=== PATIENT | female | born 1965 | race Caucasian/White ===

== ENCOUNTER 2016-11-05 12:32 | Emergency (ER) | payer OTHER ==
[2016-11-05 12:38] VITALS: BP 97/66; PULSE 78; TEMP 98.2; BMI 21.6
[2016-11-05] MEDS ORDERED: ASPIRIN 81 MG CHEWABLE TABLETS PO ONE (13:58)
[2016-11-05] MEDS ORDERED: ASPIRIN 81 MG CHEWABLE TABLETS ONE (14:10)
[2016-11-05 14:21] LABS: BASOPHIL 0.9 % (0-2.0); EOSINOPHIL 1.8 % (0-4.5); MCH 30.1 pg (25.7-33.7); MCHC 34.4 g/dl (32.0-36.0); MEAN CELL VOLUME 87.6 fl (80-96); MEAN PLT VOLUME 7.9 fl (7.5-11.1); NEUTROPHILS 60.4 % (42.8-82.8); PLATELET COUNT 309 K/MM3 (134-434); RDW 12.4 % (11.6-15.6); WHITE BLOOD COUNT 5.7 K/mm3 (4.0-10.8)
--- NOTE | 2016-11-05 14:41 | PDOC ---
History of Present Illness <Julia Agosto - Last Filed: 11/05/16 17:25> - General History Source: Patient - History of Present Illness Initial Comments: 11/05/16 14:38 51 yo F with no pmhx here with c/o chest pain. started one week ago. intermittent, sharp, no radiation. no sob. not plueritic. no f/c no cough . no leg swellig. no h/o of prior similar pain. no family h/o cad. does not take any medications. did report recent travel to [place], 10 hr car ride. no h/o pe or dvt. <Siena Garcia - Last Filed: 11/05/16 18:38> - General Chief Complaint: Pain, Acute Stated Complaint: R CHEST PAIN Time Seen by Provider: 11/05/16 13:27 Past History <Julia Agosto - Last Filed: 11/05/16 17:25> - Past Medical History Thyroid Disease: No Other medical history: DENIES - Suicide/Smoking/Psychosocial Hx Smoking History: Never smoked Hx Alcohol Use: Yes Drug/Substance Use Hx: No Substance Use Type: Alcohol <Siena Garcia - Last Filed: 11/05/16 18:38> - Past Medical History Allergies/Adverse Reactions: Allergies Allergy/AdvReac Type Severity Reaction Status Date / Time No Known Allergies Allergy Verified 11/05/16 12:32 Home Medications: Ambulatory Orders Control 0 mg PO DAILY 11/05/16 Review of Systems - Review of Systems Constitutional: No: Chills, Diaphoresis HEENTM: No: Eye Pain Respiratory: No: Cough, Orthopnea Cardiac (ROS): Yes: Chest Pain. No: Edema, Irregular Heart Rate ABD/GI: No: Abdominal Distended : No: Burning, Dysuria Musculoskeletal: No: Back Pain Integumentary: No: Bruising All Other Systems: Reviewed and Negative <Siena Garcia - Last Filed: 11/05/16 18:38> *Physical Exam - Vital Signs Last Vital Signs Temp Pulse Resp BP Pulse Ox 98.2 F 78 18 97/66 98 11/05/16 12:32 11/05/16 12:32 11/05/16 12:32 11/05/16 12:32 11/05/16 12:32 <Julia Agosto - Last Filed: 11/05/16 17:25> - Vital Signs Last Vital Signs Temp Pulse Resp BP Pulse Ox 98.2 F 78 18 97/66 98 11/05/16 12:32 11/05/16 12:32 11/05/16 12:32 11/05/16 12:32 11/05/16 12:32 - Physical Exam General Appearance: Yes: Nourished, Appropriately Dressed Neck: positive: Trachea midline Respiratory/Chest: positive: Lungs Clear, Normal Breath Sounds. negative: Chest Tender, Respiratory Distress Cardiovascular: positive: Regular Rhythm, Regular Rate, S1, S2. negative: Edema , JVD Gastrointestinal/Abdominal: positive: Normal Bowel Sounds, Flat, Soft. negative : Tender Musculoskeletal: positive: Normal Inspection, CVA Tenderness Extremity: positive: Normal Inspection. negative: Normal Capillary Refill, Pedal Edema, Swelling, Calf Tenderness Integumentary: positive: Normal Color, Dry, Warm. negative: Swelling Neurologic: positive: Fully Oriented, Alert, Normal Mood/Affect, Motor Strength 5/5 <Siena Garcia - Last Filed: 11/05/16 18:38> Heart Score/ECG Review #1 ECG reviewed & interpreted by me at: 14:40 General ECG Interpretation: Sinus Rhythm, Normal Rate (78), Normal Intervals, No acute ischemic changes Compared to previous ECG there are: Previous ECG unavail <Siena Garcia - Last Filed: 11/05/16 18:38> ED Treatment Course - LABORATORY CBC & Chemistry Diagram: 11/05/16 13:55 11/05/16 13:55 - ADDITIONAL ORDERS Additional order review: Laboratory Results 11/05/16 11/05/16 11/05/16 13:58 13:55 13:55 D-Dimer < 200 Sodium 135 L Potassium 3.5 Chloride 107 Carbon Dioxide 26 Anion Gap 2 L BUN 7 Creatinine 0.8 Creat Clearance w eGFR > 60 Random Glucose 119 H Calcium 9.2 Total Bilirubin 0.4 AST 18 ALT 10 Alkaline Phosphatase 46 Troponin I < 0.03 L B-Natriuretic Peptide 100.70 Total Protein 7.0 Albumin 3.9 11/05/16 13:55 RBC 3.99 MCV 87.6 MCHC 34.4 RDW 12.4 MPV 7.9 Neutrophils % 60.4 Lymphocytes % 29.8 Monocytes % 7.1 Eosinophils % 1.8 Basophils % 0.9 - RADIOLOGY Radiograph Interpretation: EXAM#: TYPE/EXAM: RESULT: RAD/CHEST PA LAT Chest: Chest pain 2 views reveal clear lungs, bilateral nipple shadows, normal with some and sharp angles. The soft tissues are intact. There are degenerative changes with wedging. Impression: No acute pathology. Reported By: Hilario Pena MD 11/05/16 1428 - Medications Given in the ED: ED Medications Discontinued Medications Generic Name Dose Route Start Last Admin Trade Name Freq PRN Reason Stop Dose Admin Aspirin 162 mg 11/05/16 13:58 11/05/16 14:12 Asa - PO 11/05/16 13:59 162 mg ONCE ONE Administration <Julia Agosto - Last Filed: 11/05/16 17:25> - LABORATORY CBC & Chemistry Diagram: 11/05/16 13:55 11/05/16 13:55 - ADDITIONAL ORDERS Additional order review: 11/05/16 13:55 RBC 3.99 MCV 87.6 MCHC 34.4 RDW 12.4 MPV 7.9 Neutrophils % 60.4 Lymphocytes % 29.8 Monocytes % 7.1 Eosinophils % 1.8 Basophils % 0.9 - RADIOLOGY Radiology Studies Ordered: Category Date Time Status CHEST PA & LAT [RAD] Stat Radiology 11/05/16 13:57 Completed - Medications Given in the ED: ED Medications Discontinued Medications Generic Name Dose Route Start Last Admin Trade Name Freq PRN Reason Stop Dose Admin Aspirin 162 mg 11/05/16 13:58 11/05/16 14:12 Asa - PO 11/05/16 13:59 162 mg ONCE ONE Administration <Siena Garcia - Last Filed: 11/05/16 18:38> Medical Decision Making - Medical Decision Making 11/05/16 14:40 51 yo F wit h/o recent travel, here wtih c/o chest pain. atypical, recent travel. differential: mi acs, pe, chest wall pain, gerd. plan cxr labs ekg trop asa. reassess. pt low risk for acs, will require 4 hr trop and shaun outpt followup with pcp Dr. Mancuso 11/05/16 18:34 pt labs and cxr negative. ekg unremarkable. trop negative. d dimer negative. will obtain repeat troponin if negative. dc home with cardiology followup. 11/05/16 18:38 <Siena Garcia - Last Filed: 11/05/16 18:38> *DC/Admit/Observation/Transfer - Attestations Scribe Attestion: 11/05/16 17:25 Documentation prepared by Julia Agosto, acting as medical investigator for Siena Garcia MD, <Julia Agosto - Last Filed: 11/05/16 17:25> <Siena Garcia - Last Filed: 11/05/16 18:38> Diagnosis at time of Disposition: Chest pain - Discharge Dispostion Condition at time of disposition: Improved - Referrals Referrals: Aram Flores MD [Staff Physician] - - Patient Instructions Printed Discharge Instructions: DI for Chest Pain Additional Instructions: you should take baby aspirin daily. you will need to follow up with surgery technician see referral information for dr. flores. call to schedule. you can also follow up with your primary doctor. call to schedule. return for worsening pain, shortness of breath or any concerns. - Post Discharge Activity Forms/Work/School Notes: Back to School
[2016-11-05 14:49] LABS: ALBUMIN 3.9 g/dl (3.5-5.0); ALK PHOS 46 U/L (32-92); ANION GAP 2 (8-16); CALCIUM 9.2 mg/dl (8.4-10.2); CO2 26 mmol/L (22-28); CREATININE 0.8 mg/dl (0.6-1.3); GLUCOSE,RANDOM 119 mg/dl (74-106); SGOT/AST 18 U/L (10-42); SGPT/ALT 10 U/L (10-40)
[2016-11-05 15:11] LABS: BILIRUBIN,TOTAL 0.4 mg/dl (0.2-1.0)
[2016-11-05 18:23] LABS: CPK 92 IU/L (26-192)
[2016-11-05 18:34] LABS: TROPONIN I (DFP) < 0.03 ng/ml (0.03-0.50)
--- NOTE | 2016-11-05 19:35 | EKG ---
Test Reason : Blood Pressure : / mmHG Vent. Rate : 078 BPM Atrial Rate : 078 BPM P-R Int : 138 ms QRS Dur : 076 ms QT Int : 382 ms P-R-T Axes : -14 042 030 degrees QTc Int : 435 ms POOR DATA QUALITY, INTERPRETATION MAY BE ADVERSELY AFFECTED NORMAL SINUS RHYTHM NORMAL ECG NO PREVIOUS ECGS AVAILABLE Confirmed by MARILYN VELEZ MD ([id number]) on 11/05/2016 7:35:23 PM Referred By: SUZE BLANCHARD Confirmed By:MARILYN VELEZ MD
== END 2016-11-05 18:42 | disposition home or self-care (01) ==
LOC: FER 12:32
DX: R07.9 Chest pain, unspecified (principal)
CPT/HCPCS: 36415; 71020-TC; 80053; 83880; 84484; 85025; 85379; 93005; 99283-25